=== PATIENT | female | born 1980 | race Caucasian/White ===

== ENCOUNTER 2020-09-07 06:53 | Day surgery (SDC) | payer BC ==
[~2020-09-07 06:53] MED LIST: Lactated Ringers 1,000 ML IV SCH; Lidocaine 1%/Sod Bicarbonate in NS 8.4% 1 ML Syringe IDERM PRN; Sodium Chloride 0.9% 10 ML Syringe FLUSH PRN
[2020-09-07] MEDS ORDERED: Ketamine 500 mg/10 ML MDV ONE (07:14)
[2020-09-07] MEDS ORDERED: fentaNYL 100 MCG/2 ML SDV ONE (07:14)
[2020-09-07] MEDS ORDERED: Midazolam 1 MG/ML 2 ML SDV ONE (07:14)
[2020-09-07] MEDS ORDERED: Propofol 200 MG/20 ML SDV ONE ×2 (07:14→08:22)
[2020-09-07] MEDS ORDERED: Lidocaine 1% 4 ML ONE (07:15)
--- NOTE | 2020-09-07 07:30 | PCM.PREANE ---
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 Taking Metoprolol for management. ) Gastrointestinal: Other (GERD no symptoms this morning. ) Neurological: Pre-Existing Deficit (Lumbar back pain, herniated disc.) Other: Reports: Depression - Physical Assessment NPO Status Date: 09/06/20 NPO Status Time: 20:00 Height: 1.65 m Weight: 112.037 kg ASA Class: 3 Mental Status: Alert & Oriented x3 Airway Class: Mallampati = 1 Dentition: Reports: [place](s) Thyro-Mental Finger Breadths: 3 Mouth Opening Finger Breadths: 3 ROM/Head Extension: Full Lungs: Clear to Auscultation, Normal Respiratory Effort Cardiovascular: Regular Rate, Regular Rhythm - Lab Values: Laboratory Last Values SARS-CoV-2 (PCR) Not detected (NOT DETECT) 09/03/20 08:30 - Allergies Allergies/Adverse Reactions: Allergies Allergy/AdvReac Type Severity Reaction Status Date / Time No Known Allergies Allergy Verified 09/06/20 15:09 - Anesthesia Plan Beta Jesse: Metoprolol Med Last Dose Date: 09/07/20 Med Last Dose Time: 06:30 - Acknowledgements Anesthesia Type Planned: MAC Pt an Appropriate Candidate for the Planned Anesthesia: Yes Alternatives and Risks of Anesthesia Discussed w Pt/Guardian: Yes Pt/Guardian Understands and Agrees with Anesthesia Plan: Yes PreAnesthesia Questionnaire HEENT History: Reports: Impaired Vision Cardiovascular History: Reports: Other (See Below) Other Cardiovascular History: PVCs Respiratory History: Reports: Bronchitis, Recurrent Gastrointestinal History: Reports: GERD, Other (See Below) Other Gastrointestinal History: dyspepsia, diarrhea Genitourinary History: Reports: None [employer] History: Reports: None Musculoskeletal History: Reports: Other (See Below) Other Musculoskeletal History: foot pain, pes cavus, lumbar back pain, tenosynositis Neurological History: Reports: Headaches, Chronic, Other (See Below) Other Neuro History: herniated intervetebral disc Psychiatric History: Reports: Depression Endocrine/Metabolic History: Reports: Obesity/BMI 30+ Hematologic History: Reports: Anemia Immunologic History: Reports: None Oncologic (Cancer) History: Reports: None Dermatologic History: Reports: Other (See Below) Other Dermatologic History: mole removal - Past Surgical History Head Surgeries/Procedures: Reports: None HEENT Surgical History: Reports: Oral Surgery, Tonsillectomy Cardiovascular Surgical History: Reports: None Respiratory Surgical History: Reports: None GI Surgical History: Reports: None Female Surgical History: Reports: Other (See Below) Other Female Surgeries/Procedures: cystoscopy, laparoscopic salpingectomy Endocrine Surgical History: Reports: None Neurological Surgical History: Reports: None Musculoskeletal Surgical History: Reports: None Oncologic Surgical History: Reports: None Dermatological Surgical History: Reports: None - SUBSTANCE USE Tobacco Use Status *Q: Never Tobacco User Recreational Drug Use History: No - HOME MEDS Home Medications: Home Meds ALPRAZolam [Xanax] 0.25 - 0.5 mg PO TID PRN 09/06/20 [History] Albuterol Sulfate [Albuterol Sulfate Hfa] 1 puff INH Q4H PRN 09/06/20 [History] DULoxetine [Cymbalta] 30 mg PO DAILY 09/06/20 [History] DULoxetine [Cymbalta] 60 mg PO DAILY 09/06/20 [History] Metoprolol Succinate 50 mg PO DAILY 09/06/20 [History] Ondansetron [Zofran] 4 mg PO TID PRN 09/06/20 [History] - CURRENT (IN HOUSE) MEDS Current Meds: Current Medications Lactated Ringer's (Ringers, Lactated) 1,000 mls @ 125 mls/hr IV ASDIRECTED JOO Stop: 09/07/20 23:00 Last Admin: 09/07/20 07:10 Dose: 125 mls/hr Documented by: Influenza Virus Vaccine (Fluzone Quad [id number] Syringe) 60 mcg IM .ONCE ONE Stop: 09/07/20 10:31 Lidocaine/Sodium Bicarbonate (Buffered Lidocaine 1% In Ns 8.4%) 0.25 ml IDERM ONETIME PRN PRN Reason: Prior to IV Start Stop: 09/07/20 18:00 Sodium Chloride (Saline Flush) 10 ml FLUSH ASDIRECTED PRN PRN Reason: Keep Vein Open Stop: 09/07/20 18:00 Discontinued Medications Fentanyl (Sublimaze) Confirm Administered Dose 100 mcg .ROUTE .STK-MED ONE Stop: 09/07/20 07:15 Lidocaine HCl (Xylocaine-Mpf 1%) Confirm Administered Dose 4 mls @ as directed .ROUTE .STK-MED ONE Stop: 09/07/20 07:16 Ketamine HCl (Ketalar) Confirm Administered Dose 500 mg .ROUTE .STK-MED ONE Stop: 09/07/20 07:15 Midazolam HCl (Versed 1 Mg/Ml) Confirm Administered Dose 2 mg .ROUTE .STK-MED ONE Stop: 09/07/20 07:15 Propofol (Diprivan 20 Ml) Confirm Administered Dose 400 mg .ROUTE .STK-MED ONE Stop: 09/07/20 07:15
--- NOTE | 2020-09-07 08:45 | PCM.OPNOTE ---
- General Post-Op/Procedure Note Date of Surgery/Procedure: 09/07/20 Operative Procedure(s): Esophagogastroduodenoscopy with cold forceps biopsy, colonoscopy with cold forceps biopsy Findings: Hiatal hernia, gastritis, esophagitis, normal colonoscopy Pre Op Diagnosis: GERD, Abdominal pain, Diarrhea, Abnormal CT colon Post-Op Diagnosis: Hiatal hernia, esophagitis, gastritis, normal colonoscopy Anesthesia Technique: MAC Primary Surgeon: Nestor Moss Anesthesia Provider: Natalia Lawrence EBL in mLs: 5 Complications: None Condition: Good Free Text/Narrative:: After the patient gave verbal and written consent she was placed on blood pressure and pulse ox monitoring. She was given iv sedation which she tolerated well. The olympus gastroscope was inserted in the oropharynx and passed to the second portion of the duodenum. The scope was slowly withdrawn. Normal duodenum noted. Mild gastritis was noted in the body of the stomach and cold forceps biopsies taken. The scope was retroflexed. A small sliding hiatal hernia noted. The scope was then brought to the GE junction and esophagitis noted. Cold forceps biopsies taken. The scope was removed. The patient was then prepped for colonoscopy and the olympus colonoscope was inserted per rectum and advanced to the cecum without difficulty. The ileocecal valve and appendiceal orfice were imaged documenting cecal intubation. the scope was slowly withdrawn. The prep was good, the views were good. The entire colon was normal. Random cold forceps biopsies taken throughout the colon. The scope was retroflexed in the rectum and then removed. The patient tolerated the procedure well, no complications, left OR in good condition.
--- NOTE | 2020-09-07 08:50 | PCM48HPAN ---
Post Anesthesia Note - EVALUATION WITHIN 48HRS OF ANESTHETIC Vital Signs in Normal Range: Yes Patient Participated in Evaluation: Yes Respiratory Function Stable: Yes Airway Patent: Yes Cardiovascular Function Stable: Yes Hydration Status Stable: Yes Pain Control Satisfactory: Yes Nausea and Vomiting Control Satisfactory: Yes Mental Status Recovered: Yes Vital Signs: Last Vital Signs Temp 36.3 C 09/07/20 06:55 Pulse 75 09/07/20 06:55 Resp 16 09/07/20 06:55 BP 122/63 09/07/20 06:55 Pulse Ox 97 09/07/20 06:55
[2020-09-07 09:56] VITALS: BP 105/59; PULSE 65
[2020-09-07] MEDS ORDERED: FLU VACC QS2020-21(6MOS UP)/PF 60 MCG/0.5 ML SYRINGE IM ONE (10:30)
== END 2020-09-07 10:05 | disposition home or self-care (01) ==
LOC: JD.SDS 06:53
PROVIDERS: ATTEND Family Medicine
DX: R19.7 Diarrhea, unspecified (principal); R93.3 Abnormal findings on diagnostic imaging of other parts of digestive tract; K29.50 Unspecified chronic gastritis without bleeding; K44.9 Diaphragmatic hernia without obstruction or gangrene; K21.00 Gastro-esophageal reflux disease with esophagitis, without bleeding; F32.9 Major depressive disorder, single episode, unspecified; E66.09 Other obesity due to excess calories; Z98.890 Other specified postprocedural states; Z68.41 Body mass index [BMI] 40.0-44.9, adult; Z01.812 Encounter for preprocedural laboratory examination; Z20.828 Contact with and (suspected) exposure to other viral communicable diseases; Z79.899 Other long term (current) drug therapy
CPT/HCPCS: 43239; 45380; 87635; 90471; 90686; J2001; J2250; J2704; J3010; J7120; 00813; G0008; U0002